=== PATIENT | female | born 1965 | race Caucasian/White ===

== ENCOUNTER 2016-05-16 17:53 | Emergency (ER) | payer BC ==
[~2016-05-16] VITALS: Ht 167.6 cm; Wt 79.4 kg
[~2016-05-16 17:53] MED LIST: CYCL5TAB11 PO; LAMO200T2 PO; SERT100T PO; TOPI100T11 PO; ZOLP10TA2 PO
[2016-05-16] MEDS ORDERED: MECLIZINE HCL 12.5 MG TABLET PO ONE (19:00)
[2016-05-16] MEDS ORDERED: MECLIZINE HCL 25 MG TABLET ONE (19:11)
[2016-05-16 20:30] VITALS: BP 138/80
== END 2016-05-16 20:32 | disposition home or self-care (01) ==
LOC: ER 17:55
DX: H81.10 Benign paroxysmal vertigo, unspecified ear (principal); K58.9 Irritable bowel syndrome, unspecified; F41.9 Anxiety disorder, unspecified; F32.9 Major depressive disorder, single episode, unspecified; F31.9 Bipolar disorder, unspecified; M79.7 Fibromyalgia; Z90.710 Acquired absence of both cervix and uterus
CPT/HCPCS: 70450; 93005; 99284; A4606; J8597; Z7610

== ENCOUNTER 2017-11-11 11:54 | Emergency (ER) | payer BC ==
[~2017-11-11] VITALS: Ht 162.6 cm; Wt 78.5 kg
[~2017-11-11 11:54] MED LIST changes: +TOPI100T PO; -TOPI100T11 PO
--- NOTE | 2017-11-11 12:00 | NUR ---
AAOX3, BIB RA 878 FROM WORK, STRESS/ANXIETY AFTER GETTING NEWS FROM HER PROVIDER THAT SHE MAY HAVE LUPUS OR RA. SKIN IS WARM AND DRY. RESP IS EVEN AND UNLABORED WITH NAD NOTED. AWAITING MD FOR EVAL.
[2017-11-11] MEDS ORDERED: LORAZEPAM INJ 2 MG/ML VIAL ONE (12:15)
[2017-11-11 12:18] LABS: BASOPHILS % (AUTO) 0.1 % (0.0-2.0); EOSINOPHILS % (AUTO) 0.1 % (0.0-6.0); HEMATOCRIT 42 % (33-45); HEMOGLOBIN 13.9 g/dL (11.5-14.8); LYMPHOCYTES # (AUTO) 0.6 /CMM (0.8-4.8); LYMPHOCYTES % (AUTO) 6.7 % (20.0-44.0); MEAN CORPUSCULAR HEMOGLOBIN 29 PG (26.0-33.0); MEAN CORPUSCULAR HGB CONC 33 g/dl (31.0-36.0); MEAN CORPUSCULAR VOLUME 89 fL (82-100); MONOCYTES # (AUTO) 0.2 /CMM (0.1-1.30); MONOCYTES % (AUTO) 1.8 % (2.0-12.0); NEUTROPHILS # (AUTO) 8.8 /CMM (1.8-8.9); NEUTROPHILS % (AUTO) 91.3 % (43.0-81.0); RDW COEFFICIENT OF VARIATION 12.5 (11.5-15.0); RED BLOOD CELL COUNT(AUTO) 4.74 MIL/uL (4.0-5.2); WHITE BLOOD COUNT (AUTO) 9.6 K/uL (4.3-11.0)
[2017-11-11 12:21] LABS: PLATELET COUNT (AUTO) 263 /CMM (150-450)
[2017-11-11 12:25] LABS: CALCIUM, SERUM 9.2 mg/dL (8.5-10.1); CREATININE 1.1 mg/dL (0.6-1.3); POTASSIUM 3.8 mmol/L (3.5-5.1)
[2017-11-11] MEDS ORDERED: IV NS 0.9% 1,000 ML BAG IV ONE (12:30)
[2017-11-11] MEDS ORDERED: LORAZEPAM INJ 2 MG/ML VIAL IV ONE (12:30)
--- NOTE | 2017-11-11 13:22 | NUR ---
IV removed. Catheter intact and site benign. Pressure and 4x4 applied to site. No bleeding noted.Patient discharged to home in stable condition. Written and verbal after care instructions given. Patient verbalizes understanding of instruction.
[2017-11-11 13:25] VITALS: BP 135/88
== END 2017-11-11 13:26 | disposition home or self-care (01) ==
LOC: ER 11:56
DX: F41.9 Anxiety disorder, unspecified (principal); F32.9 Major depressive disorder, single episode, unspecified; M79.7 Fibromyalgia; Z87.19 Personal history of other diseases of the digestive system; Z90.710 Acquired absence of both cervix and uterus; Z98.890 Other specified postprocedural states; Z79.899 Other long term (current) drug therapy
CPT/HCPCS: 36415; 80048; 85025; 96374; 99284; A4606; J2060; J7030; Z7610

== ENCOUNTER 2020-03-04 15:51 | Emergency (ER) | payer BC ==
[~2020-03-04] VITALS: Ht 162.6 cm; Wt 79.4 kg
--- NOTE | 2020-03-04 16:06 | NUR ---
DR LOPEZ IN TO SEE PATIENT.
--- NOTE | 2020-03-04 16:51 | NUR ---
Patient discharged to home in stable condition. Written and verbal after care instructions given. Patient verbalizes understanding of instruction.
[2020-03-04 16:52] VITALS: BP 132/94
== END 2020-03-04 16:54 | disposition home or self-care (01) ==
LOC: ER 15:53
DX: S06.0X0A Concussion without loss of consciousness, initial encounter (principal); S09.8XXA Other specified injuries of head, initial encounter; R51.9 Headache, unspecified; Z90.710 Acquired absence of both cervix and uterus; Z98.890 Other specified postprocedural states; W01.198A Fall on same level from slipping, tripping and stumbling with subsequent striking against other object, initial encounter; Y93.89 Activity, other specified; Y92.89 Other specified places as the place of occurrence of the external cause; Y99.8 Other external cause status
CPT/HCPCS: 70450-TC

== ENCOUNTER 2020-06-12 19:11 | Inpatient (IN) | payer BC ==
[~2020-06-12] VITALS: Ht 165.1 cm; Wt 83.9 kg
--- NOTE | 2020-06-12 19:32 | NUR ---
PT BIBSELF C/O OF LLQ PAIN AND B20 EPISODES OF BRIGGHT BLOODY DIARRHEAX1 DAY. PT AAOX4 BREATHING EVENLY AND UNLABORED. PT STATES SHE HAS 9/10 PAIN AND STATES "I DONT KNOW IF IT WAS SOMETHING I ATE" PT SKIN WARM, DRY, AND INTACT. PT HAS 20G IV INITIATED AND BLOOD DRAWN AND SENT TO LAB. PT ATTACHED TO MONITOR AND POX. PT GIVEN BLANKET AND CALL LIGHT WITHIN REACH.
[2020-06-12] MEDS ORDERED: ONDANSETRON HCL/PF 4 MG/2 ML VIAL ONE ×2 (19:52→21:23)
[2020-06-12] MEDS ORDERED: MORPHINE SULFATE INJ 4 MG/ML DISP.SYRIN ONE ×2 (19:52→21:24)
[2020-06-12] MEDS ORDERED: ONDANSETRON HCL/PF 4 MG/2 ML VIAL IVP ONE ×2 (20:00→21:30)
[2020-06-12] MEDS ORDERED: IV NS 0.9% 1,000 ML BAG IV ONE (20:00)
[2020-06-12] MEDS ORDERED: MORPHINE SULFATE INJ 2 MG/ML DISP.SYRIN IV ONE ×2 (20:00→21:30)
[2020-06-12 20:08] LABS: BASOPHILS % (AUTO) 0.3 % (0.0-2.0); EOSINOPHILS % (AUTO) 0.3 % (0.0-6.0); HEMATOCRIT 39 % (33-45); HEMOGLOBIN 13.5 g/dL (11.5-14.8); LYMPHOCYTES # (AUTO) 0.9 /CMM (0.8-4.8); LYMPHOCYTES % (AUTO) 8.3 % (20.0-44.0); MEAN CORPUSCULAR HGB CONC 34 g/dl (31.0-36.0); MEAN CORPUSCULAR VOLUME 89 fL (82-100); MONOCYTES # (AUTO) 0.6 /CMM (0.1-1.30); MONOCYTES % (AUTO) 5.6 % (2.0-12.0); NEUTROPHILS # (AUTO) 9.3 /CMM (1.8-8.9); NEUTROPHILS % (AUTO) 85.5 % (43.0-81.0); PLATELET COUNT (AUTO) 220 /CMM (150-450); RED BLOOD CELL COUNT(AUTO) 4.42 MIL/uL (4.0-5.2); WHITE BLOOD COUNT (AUTO) 10.9 K/uL (4.3-11.0)
--- NOTE | 2020-06-12 20:10 | NUR ---
TAKEN TO RADIOLOGY
[2020-06-12 20:17] LABS: CALCIUM, SERUM 8.3 mg/dL (8.5-10.1); CREATININE 1.1 mg/dL (0.6-1.3); POTASSIUM 3.2 mmol/L (3.5-5.1)
[2020-06-12 20:29] LABS: ALBUMIN 3.5 g/dL (3.4-5.0); BILIRUBIN,DIRECT 0.3 mg/dL (0.0-0.2); TOTAL PROTEIN, SERUM 7.2 g/dL (6.4-8.2)
[2020-06-12 20:46] LABS: BILIRUBIN,URINE Negative (NEGATIVE); COLOR,URINE YELLOW (YELLOW); LEUKOCYTE ESTERASE ,URINE Moderate (NEGATIVE); NITRITE, URINE Negative (NEGATIVE); PH,URINE 6.5 (5.0-8.0); PROTEIN,URINE Trace mg/dl (NEGATIVE); UGLUCOSE Negative (NEGATIVE); UROBILINOGEN,URINE 0.2 EU/dL (0.2)
[2020-06-12 20:48] LABS: BACTERIA,URINE 1+ /HPF (None Seen); SQUAMOUS EPITHELIAL CELL,UR Few /HPF (None Seen)
--- NOTE | 2020-06-12 21:18 | NUR ---
called lab for covid swab
--- NOTE | 2020-06-12 21:21 | NUR ---
called house sup for d5 1/2ns+ 20meq kcl
[2020-06-12] MEDS ORDERED: PIPERACILLIN /TAZOBACTAM 3.375 G VIAL IV ONE (21:23)
[2020-06-12] MEDS ORDERED: POTASSIUM CHLORIDE 20 MEQ TAB.PRT.SR PO ONE ×2 (21:24→21:30)
[2020-06-12] MEDS ORDERED: IV PREMIX D5 1/2NS + KCL 1,000 ML IV ONE ×2 (21:30→21:49)
[2020-06-12] MEDS ORDERED: PIPERACILLIN /TAZOBACTAM 3.375 G in IV D5W 50 ML IV ONE (21:30)
--- NOTE | 2020-06-12 22:52 | NUR ---
ATTEMPTED TO GIVE REPORT. RN BUSY
--- NOTE | 2020-06-12 23:04 | NUR ---
GAVE REPORT TO JAY MONTANA FOR ZEYNEP
[2020-06-12 23:10] VITALS: BP 109/60
--- NOTE | 2020-06-12 23:18 | NUR ---
MS PLEATER HAND NOTE Patient arrived to floor via guerney. VSS. No acute distress or SOB noted. Breath sounds even clear unlabored on room air. Abdominal tenderness noted in lower and upper left quadrant. BS hyperactive in same quadrants. Last BM was today, pt states there was a quarter-sized amount of blood in diarrhea. No nausea or vomiting noted at this time. Pulses 2+, symmetrical. Skin warm, pink, dry, intact. IV 20g left hand, patent and intact. Belongings list completed and documented. Patient oriented to room. Bed in low position, wheels locked, side rails up x2, call light within reach.
[2020-06-12] MEDS ORDERED: LEVOFLOXACIN 500 MG /D5W 100ML 100 ML IV ONE (23:45)
[2020-06-13] MEDS: MORPHINE SULFATE INJ 2 MG/ML DISP.SYRIN IV PRN ×4 (00:06→20:37)
[2020-06-13] MEDS: LEVOFLOXACIN 500 MG /D5W 100ML 500 MG in PREMIX 1 EA IV SCH ×2 (00:07→22:05)
[2020-06-13 00:50] VITALS: BP 109/60
[2020-06-13] MEDS: METRONIDAZOLE 500 MG TABLET PO SCH ×3 (04:41→20:36)
--- NOTE | 2020-06-13 06:27 | NUR ---
MS RN CLOSING NOTE Patient asleep in bed, a/o x4. No acute distress or SOB noted. Breath sounds even clear unlabored on room air. Abdominal tenderness noted in lower and upper left quadrant. BS hyperactive in same quadrants. Patient denies nausea, vomiting. IV 20g left hand, patent and intact. Bed in low position, wheels locked, side rails up x2, call light within reach.
[2020-06-13] MEDS: PANTOPRAZOLE 40 MG TABLET.DR PO SCH (06:32)
[2020-06-13] MEDS: ACETAMINOPHEN 325 MG TABLET PO PRN (06:36)
[2020-06-13 06:41] LABS: BASOPHILS % (AUTO) 0.1 % (0.0-2.0); EOSINOPHILS % (AUTO) 0.4 % (0.0-6.0); HEMATOCRIT 37 % (33-45); HEMOGLOBIN 12.6 g/dL (11.5-14.8); LYMPHOCYTES # (AUTO) 1.1 /CMM (0.8-4.8); LYMPHOCYTES % (AUTO) 10.8 % (20.0-44.0); MEAN CORPUSCULAR HGB CONC 34 g/dl (31.0-36.0); MEAN CORPUSCULAR VOLUME 90 fL (82-100); MONOCYTES # (AUTO) 0.5 /CMM (0.1-1.30); MONOCYTES % (AUTO) 5.4 % (2.0-12.0); NEUTROPHILS # (AUTO) 8.3 /CMM (1.8-8.9); NEUTROPHILS % (AUTO) 83.3 % (43.0-81.0); PLATELET COUNT (AUTO) 210 /CMM (150-450); RED BLOOD CELL COUNT(AUTO) 4.12 MIL/uL (4.0-5.2)
[2020-06-13 06:58] LABS: ALBUMIN 3.1 g/dL (3.4-5.0); BILIRUBIN,TOTAL 0.8 mg/dL (0.2-1.0); CALCIUM, SERUM 8.1 mg/dL (8.5-10.1); CREATININE 0.9 mg/dL (0.6-1.3); MAGNESIUM 2.5 mg/dL (1.8-2.4); PHOSPHORUS 2.3 mg/dL (2.5-4.9); POTASSIUM 3.8 mmol/L (3.5-5.1); TOTAL PROTEIN, SERUM 6.6 g/dL (6.4-8.2)
[2020-06-13 07:05] LABS: THYROID STIMULATING HORMONE 0.991 uIU/mL (0.358-3.74)
[2020-06-13] MEDS ORDERED: TRAM50TA2 PO (07:22)
[2020-06-13] MEDS ORDERED: CYCL10TA9 PO (07:22)
[2020-06-13] MEDS ORDERED: PRAZ2CAP2 PO (07:22)
[2020-06-13] MEDS ORDERED: VALA500T40 PO (07:22)
[2020-06-13] MEDS ORDERED: SERT-439 PO (07:22)
[2020-06-13] MEDS ORDERED: TOPI25TA49 PO (07:22)
[2020-06-13] MEDS ORDERED: LAMO150T6 PO (07:22)
--- NOTE | 2020-06-13 07:59 | NUR ---
MS RN OPENING NOTE Patient asleep in bed, a/o x4. No acute distress or SOB noted. Breath sounds even clear unlabored on room air. Patient denies nausea, vomiting. IV 20g left hand, patent and intact. Bed in low position, wheels locked, side rails up x2, call light within reach.
[2020-06-13 08:00] VITALS: BP 97/57
--- NOTE | 2020-06-13 08:50 | NUR ---
RN MS NOTES DR. BLAKE ROUNDED, DISCUSSED POC, WILL RECONCILE MEDS. CHANGED DIET TO CLEAR LIQUID
[2020-06-13] MEDS ORDERED: TRAMADOL HCL 50 MG TABLET PO PRN (09:30)
[2020-06-13] MEDS ORDERED: K PHOS NEUTRAL 250 MG TABLET PO ONE (11:00)
[2020-06-13] MEDS: ONDANSETRON HCL/PF 4 MG/2 ML VIAL IVP PRN ×2 (14:08→22:17)
[2020-06-13] MEDS ORDERED: CYCLOBENZAPRINE 10 MG TABLET PO PRN (14:30)
[2020-06-13 16:00] VITALS: BP 96/58
[2020-06-13] MEDS: PRAZOSIN HCL 1 MG CAPSULE PO SCH (17:00)
--- NOTE | 2020-06-13 18:16 | NUR ---
MS RN CLOSING NOTE Patient asleep in bed, a/o x4. No acute distress or SOB noted. Breath sounds even clear unlabored on room air. Patient denies nausea, vomiting. IV 20g left hand, patent and intact. Bed in low position, wheels locked, side rails up x2, call light within reach.
--- NOTE | 2020-06-13 19:30 | NUR ---
MS/RN OPENING NOTES RECEIVED PATIENT RESTING IN BED. PATIENT IS ALERT AND ORIENTED X 4. PATIENT BREATHING IS EVEN AND UNLABORED. NO SIGNS OF SOB OR RESPIRATORY DISTRESS NOTED. PATIENT HAS IV ACCESS INTACT FLUSHING WELL. SAFETY MEASURES ARE IN PLACE, BED IS LOCKED AND PLACED IN THE LOW POSITION, SIDE RAILS UP X 2, CALL LIGHT IS WITHIN REACH. WILL CONTINUE WITH PATIENT PLAN OF CARE.
[2020-06-13 20:26] VITALS: BP 102/60
--- NOTE | 2020-06-13 20:40 | NUR ---
MS/RN NOTES PATIENT STATED SHE WAS EXPERIENCING PAIN. PATIENT GIVEN MORPHINE 2 MG IVP. VITAL SIGNS WNL, WILL CONTINUE TO MONITOR.
[2020-06-13] MEDS ORDERED: CYCLOBENZAPRINE 10 MG TABLET PO SCH (22:00)
[2020-06-14] MEDS: METRONIDAZOLE 500 MG TABLET PO SCH ×3 (05:01→20:44)
--- NOTE | 2020-06-14 06:25 | NUR ---
MS/RN CLOSING NOTES PATIENT SLEEPING IN BED EASY TO AROUSE. PATIENT IS ALERT AND ORIENTED X 4. PATIENT BREATHING IS EVEN AND UNLABORED. NO SIGNS OF SOB OR RESPIRATORY DISTRESS NOTED. PATIENT HAS IV ACCESS INTACT FLUSHING WELL. ALL NEEDS HAVE BEEN MET DURING SHIFT. SAFETY MEASURES ARE IN PLACE, BED IS LOCKED AND PLACED IN THE LOW POSITION, SIDE RAILS UP X 2, CALL LIGHT IS WITHIN REACH. WILL ENDORSE CARE TO DAY SHIFT NURSE.
[2020-06-14 06:49] LABS: CREATININE 0.9 mg/dL (0.6-1.3); PHOSPHORUS 3.2 mg/dL (2.5-4.9); POTASSIUM 3.5 mmol/L (3.5-5.1)
[2020-06-14 08:00] VITALS: BP 132/73
[2020-06-14] MEDS: LamoTRIgine 100 MG TABLET PO SCH (08:52)
[2020-06-14] MEDS: VALACYCLOVIR HCL 500 MG TABLET PO SCH (08:52)
[2020-06-14] MEDS: PANTOPRAZOLE 40 MG TABLET.DR PO SCH (08:52)
[2020-06-14] MEDS: SERTRALINE HCL 50 MG TABLET PO SCH (08:53)
[2020-06-14] MEDS: TOPIRAMATE 25 MG TABLET PO SCH (08:53)
[2020-06-14] MEDS: PRAZOSIN HCL 1 MG CAPSULE PO SCH ×2 (08:55→16:11)
[2020-06-14 16:00] VITALS: BP 100/62
--- NOTE | 2020-06-14 18:07 | NUR ---
MS/RN CLOSING NOTES PATIENT RESTING IN BED. PATIENT IS ALERT AND ORIENTED X 4. PATIENT BREATHING IS EVEN AND UNLABORED. NO SIGNS OF SOB OR RESPIRATORY DISTRESS NOTED. PATIENT HAS IV ACCESS INTACT FLUSHING WELL. SAFETY MEASURES ARE IN PLACE, BED IS LOCKED AND PLACED IN THE LOW POSITION, SIDE RAILS UP X 2, CALL LIGHT IS WITHIN REACH.
--- NOTE | 2020-06-14 19:05 | NUR ---
RECEIVED PT ON BED AWAKE A/O X4 VERBALIZED NEEDS ON ROOM AIR SPO2 98% NO SIGN AND SYMPTOMS OF RESPIRATORY DISTRESS, NO PAIN COMPLAINT AT THIS TIME, IV LEFT HAND # 20 PATENT AND FLUSHED, BED ON LOWEST POSITION AND LOCKED SIDE RAILS UP X 2 CALL LIGHT WITHIN REACH WILL CONT TO MONITOR
[2020-06-14 20:00] VITALS: BP 116/75
[2020-06-14 20:39] VITALS: BP 116/75
[2020-06-14] MEDS: LEVOFLOXACIN 500 MG /D5W 100ML 500 MG in PREMIX 1 EA IV SCH (21:19)
[2020-06-15] MEDS: METRONIDAZOLE 500 MG TABLET PO SCH ×2 (04:55→12:04)
--- NOTE | 2020-06-15 06:42 | NUR ---
PT ON BED ASLEEP EASY TO WAKE UP ON ROOM AIR NO SIGN OF ANY RESPIRATORY DISTRESS, NO PAIN COMPLAINT, NO SIGNIFICANT CHANGES ON CONDITION NOTED ALL NEEDS ATTENDED, BED ON LOWEST POSITION AND LOCKED SIDE RAILS UP X 2 CALL LIGHT WITHIN REACH WILL ENDORSE TO AM SHIFT NURSE
--- NOTE | 2020-06-15 07:37 | NUR ---
MS RN OPENING NOTE: PT RECEIVED AWAKE, IN BED, RESTING COMFORTABLY. PT IS A/O X 4, VERBAL, MAORI SPEAKING AND ABLE TO MAKE NEEDS KNOWN WITH NO C/O PAIN AT THIS TIME. PT IS ON ROOM AIR, OBSERVED TO HAVE EVEN RISE AND FALL OF CHEST, WITH NO S/SX OF RESPIRATORY DISTRESS OR SOB AT THIS TIME. PT HAS AN IV ACCESS ON LEFT HAND G#20, PATENT, INTACT AND FLUSHING WELL WITH ON S/SX OF INFECTION, INFILTRATION OR IRRITATION. PT IS AMBULATORY WITH STEADY GAIT, IS ABLE TO AMBULATE TO THE BATHROOM INDEPENDENTLY. SAFETY MEASURES IN PLACE: BED IN LOWEST, LOCKED POSITION WITH BOTH UPPER SIDE RAILS UP X2. CALL LIGHT PLACED WITHIN REACH. WILL CONTINUE TO MONITOR.
[2020-06-15 08:00] VITALS: BP 129/72
[2020-06-15] MEDS: PANTOPRAZOLE 40 MG TABLET.DR PO SCH (08:15)
[2020-06-15] MEDS: LamoTRIgine 100 MG TABLET PO SCH (08:26)
[2020-06-15 08:27] VITALS: BP 129/72
[2020-06-15] MEDS: VALACYCLOVIR HCL 500 MG TABLET PO SCH (08:27)
[2020-06-15] MEDS: PRAZOSIN HCL 1 MG CAPSULE PO SCH (08:27)
[2020-06-15] MEDS: SERTRALINE HCL 50 MG TABLET PO SCH (08:27)
[2020-06-15] MEDS: TOPIRAMATE 25 MG TABLET PO SCH (08:27)
[2020-06-15] MEDS: ACETAMINOPHEN 325 MG TABLET PO PRN (09:15)
--- NOTE | 2020-06-15 09:20 | NUR ---
MS RN NOTE: PAIN PT C/O ACHING PAIN IN ABDOMEN RATED 2/10. TYLENOL 650MG PO Q6H PRN ADMINISTERED AT 09:15AM ORDERED PER PT'S REQUEST. WILL CONTINUE TO MONITOR.
--- NOTE | 2020-06-15 12:51 | NUR ---
MS DRUG WORKER NOTE: PT ABLE TO DISCHARGE TODAY. PT IS A/O X 4, VERBAL, ABLE TO MAKE NEEDS KNOWN WITH NO C/O PAIN AND NO S/SX OF ACUTE DISTRESS AT THIS TIME. PT'S VSS. PT IS MEDICALLY STABLE AT THIS TIME. IV ACCESS REMOVED. ID BAND/ARM BAND REMOVED. BELONGINGS LIST AND DISCHARGE PAPERS SIGNED FOR, COPIED AND GIVEN TO PT/PLACED IN CHART. COPIES OF IMAGING REPORTS GIVEN TO PT. DISCHARGE INSTRUCTIONS AND EDUCATION GIVEN TO PATIENT WITH SUCCESSFUL RETURN DEMONSTRATION AND VERBALIZATION OF UNDERSTANDING. ALL CARE, NEEDS, MEDICATION AND TREATMENT GIVEN ORDERED PER FACILITY PROTOCOL. PT LEFT UNIT AT 12:42PM, AMBULATORY WITH STEADY GAIT, ACCOMPANIED BY ME TO STEPHANIE. PICKED UP BY GINA CRAIG, MOTHER. CHARGE NURSE AND MD AWARE.
[2020-06-15] MEDS ORDERED: LEVOFLOXACIN (250MG) 250 MG TABLET PO SCH (22:00)
== END 2020-06-15 12:45 | disposition home or self-care (01) | DRG 872 ==
LOC: ER 19:16 → MED 22:49
PROVIDERS: ADMIT Internal Medicine; ATTEND Internal Medicine
DX: A41.9 Sepsis, unspecified organism (principal); A04.9 Bacterial intestinal infection, unspecified; N39.0 Urinary tract infection, site not specified; M48.56XA Collapsed vertebra, not elsewhere classified, lumbar region, initial encounter for fracture; E87.6 Hypokalemia; Z90.711 Acquired absence of uterus with remaining cervical stump; M79.7 Fibromyalgia; N80.9 Endometriosis, unspecified; Z87.891 Personal history of nicotine dependence; I10 Essential (primary) hypertension; F41.9 Anxiety disorder, unspecified; F32.9 Major depressive disorder, single episode, unspecified; K82.8 Other specified diseases of gallbladder; E27.8 Other specified disorders of adrenal gland; M41.86 Other forms of scoliosis, lumbar region; F10.10 Alcohol abuse, uncomplicated; Y90.9 Presence of alcohol in blood, level not specified; Z68.29 Body mass index [BMI] 29.0-29.9, adult; E66.9 Obesity, unspecified; F60.3 Borderline personality disorder; K58.0 Irritable bowel syndrome with diarrhea; Z20.822 Contact with and (suspected) exposure to COVID-19
CPT/HCPCS: 36415; 80048-TC; 80053-TC; 80061-TC; 80076-TC; 81001; 83540-TC; 83690-TC; 83735-TC; 84100-TC; 84443-TC; 85025-TC; 87081-TC; 87086-TC; A4216; C9803; G0378; J1956; J2270; J2405; J2543; J3490; J7050; J7060

== ENCOUNTER 2021-01-14 09:06 | Emergency (ER) | payer BC ==
[~2021-01-14] VITALS: Ht 165.1 cm; Wt 70.3 kg
[~2021-01-14 09:06] MED LIST changes: +CYCL10TA9 PO; -CYCL5TAB11 PO; +LAMO150T6 PO; -LAMO200T2 PO; +PRAZ2CAP2 PO; -SERT100T PO; +SERT100T12 PO; -TOPI100T PO; +TOPI25TA49 PO; +TRAM50TA2 PO; +VALA500T40 PO; -ZOLP10TA2 PO
--- NOTE | 2021-01-14 09:16 | NUR ---
TO ER BED 2 BIB RA 102, C/O BODY PAIN, CHEST AND BACK, P/S 08/24, DENIES TRAUMA, AAX3, BREATHING EVEN AND NON LABORED, CONNECTED TO MONITOR
--- NOTE | 2021-01-14 09:26 | NUR ---
LAB AT BEDSIDE
[2021-01-14] MEDS ORDERED: MORPHINE SULFATE INJ 2 MG/ML DISP.SYRIN IV ONE (09:30)
[2021-01-14] MEDS ORDERED: ONDANSETRON HCL/PF - ER 4 MG/2 ML VIAL IV ONE (09:30)
[2021-01-14] MEDS ORDERED: ONDANSETRON HCL/PF 4 MG/2 ML VIAL ONE (09:46)
[2021-01-14] MEDS ORDERED: MORPHINE SULFATE INJ 4 MG/ML DISP.SYRIN ONE (09:46)
[2021-01-14 09:50] LABS: BASOPHILS % (AUTO) 0.5 % (0.0-2.0); EOSINOPHILS % (AUTO) 2.6 % (0.0-6.0); HEMATOCRIT 40 % (33-45); HEMOGLOBIN 13.6 g/dL (11.5-14.8); LYMPHOCYTES % (AUTO) 38.5 % (20.0-44.0); MEAN CORPUSCULAR HGB CONC 34 g/dl (31.0-36.0); MEAN CORPUSCULAR VOLUME 89 fL (82-100); MONOCYTES # (AUTO) 0.3 K/uL (0.1-1.30); MONOCYTES % (AUTO) 6.1 % (2.0-12.0); NEUTROPHILS # (AUTO) 2.7 K/uL (1.8-8.9); NEUTROPHILS % (AUTO) 52.3 % (43.0-81.0); PLATELET COUNT (AUTO) 252 K/uL (150-450); RED BLOOD CELL COUNT(AUTO) 4.54 MIL/uL (4.0-5.2); WHITE BLOOD COUNT (AUTO) 5.1 K/uL (4.3-11.0)
[2021-01-14 10:05] LABS: ALANINE AMINOTRANSFERASE 22 U/L (12-78); ALBUMIN 3.9 g/dL (3.4-5.0); ALKALINE PHOSPHATASE 100 U/L (46-116); ASPARTATE AMINOTRANSFERASE 22 U/L (15-37); BILIRUBIN,DIRECT 0.2 mg/dL (0.0-0.2); BILIRUBIN,TOTAL 0.8 mg/dL (0.2-1.0); CALCIUM, SERUM 8.9 mg/dL (8.5-10.1); CARBON DIOXIDE 22 mmol/L (21-32); CHLORIDE 107 mmol/L (98-107); CREATININE 0.9 mg/dL (0.6-1.3); GLUCOSE 86 mg/dL (74-106); POTASSIUM 3.5 mmol/L (3.5-5.1); SODIUM SERUM 140 mmol/L (136-145); TOTAL PROTEIN, SERUM 7.2 g/dL (6.4-8.2); UREA NITROGEN, BLOOD 11 mg/dL (7-18)
--- NOTE | 2021-01-14 10:06 | NUR ---
URINE COLLECTED AND SENT TO THE LAB
[2021-01-14] MEDS ORDERED: IOHEXOL-350 100 ML VIAL IV ONE (10:58)
[2021-01-14] MEDS ORDERED: IV NS 0.9% 250 ML IV ONE (10:58)
--- NOTE | 2021-01-14 11:25 | NUR ---
COVID SAMPLE OBTAINED AND SENT TO LAB
--- NOTE | 2021-01-14 11:41 | NUR ---
MOVE SHEET SUBMITTED AND CALLED FOR TELE BED.
--- NOTE | 2021-01-14 12:12 | NUR ---
BED 321 - 2. REPORT TO BRUCE
[2021-01-14] MEDS ORDERED: ASPIRIN 81 MG TAB.CHEW PO ONE (12:30)
[2021-01-14] MEDS ORDERED: ASPIRIN 81 MG TAB.CHEW ONE (13:04)
[2021-01-14] MEDS ORDERED: MAGNESIUM HYDROXIDE 30 ML UDC PO PRN (13:30)
[2021-01-14] MEDS ORDERED: ACETAMINOPHEN 325 MG TABLET PO PRN (13:30)
[2021-01-14] MEDS ORDERED: ZOLPIDEM TARTRATE 5 MG TABLET PO PRN (13:30)
[2021-01-14] MEDS ORDERED: Z GUARD REMEDY 2 OZ OINT TP PRN (13:30)
[2021-01-14] MEDS ORDERED: MAG HYDROX/AL HYDROX/SIMETH 30 ML UDC PO PRN (13:30)
[2021-01-14] MEDS ORDERED: ONDANSETRON HCL/PF 4 MG/2 ML VIAL IVP PRN (13:30)
[2021-01-14] MEDS ORDERED: MORPHINE SULFATE INJ 2 MG/ML DISP.SYRIN IV PRN (13:30)
[2021-01-14] MEDS ORDERED: IV NS 0.9% 1,000 ML IV PRN (13:30)
--- NOTE | 2021-01-14 14:33 | NUR ---
REPORT GIVEN TO NURSE BARRERA
--- NOTE | 2021-01-14 14:50 | NUR ---
IV removed. Catheter intact and site benign. Pressure and 4x4 applied to site. No bleeding noted.Patient discharged to home in stable condition. Written and verbal after care instructions given. Patient verbalizes understanding of instruction. The patient is discharged with .
[2021-01-14 14:51] VITALS: BP 116/72
[2021-01-14] MEDS ORDERED: CYCLOBENZAPRINE 10 MG TABLET PO SCH (22:00)
[2021-01-15] MEDS ORDERED: PANTOPRAZOLE 40 MG TABLET.DR PO SCH (07:30)
[2021-01-15] MEDS ORDERED: TOPIRAMATE 25 MG TABLET PO SCH (09:00)
[2021-01-15] MEDS ORDERED: ASPIRIN EC 81 MG TABLET.DR PO SCH (09:00)
[2021-01-15] MEDS ORDERED: LamoTRIgine 100 MG TABLET PO SCH (09:00)
== END 2021-01-14 14:51 | disposition home or self-care (01) ==
LOC: ER 09:08 → TELE 12:22 → UNDOADMIN 12:22
DX: R07.9 Chest pain, unspecified (principal); M79.7 Fibromyalgia; I10 Essential (primary) hypertension; R94.31 Abnormal electrocardiogram [ECG] [EKG]; F31.9 Bipolar disorder, unspecified; F60.3 Borderline personality disorder; Z20.822 Contact with and (suspected) exposure to COVID-19; Z79.899 Other long term (current) drug therapy; Z53.20 Procedure and treatment not carried out because of patient's decision for unspecified reasons
CPT/HCPCS: 36415; 71045; 71275; 80048; 80076; 83735; 84484 ×2; 84703; 85025; 85378; 87081; 87426; 93005 ×2; 96374; 96375; 99285; J2270; J2405 ×2; J7050; Q9967

== ENCOUNTER 2021-03-31 20:09 | Emergency (ER) | payer BC ==
[~2021-03-31] VITALS: Ht 165.1 cm; Wt 65.8 kg
[~2021-03-31 20:09] MED LIST changes: -PRAZ2CAP2 PO; -SERT100T12 PO
[2021-03-31] MEDS ORDERED: LORAZEPAM 1 MG TABLET ONE (21:44)
--- NOTE | 2021-03-31 21:50 | NUR ---
PT BIBSELF C/O TROUBLE Bx, AND HEAVY CHEST AT NIGHT WHILE SLEEPING. PT TESTED COVID POSITIVE ON 03/22. PATIENT IS A/O X 4, RR EVEN AND UNLABORED, NO SOB NOTED. PATIENT CONNECTED TO CARDIAC AND POX MONITOR.
--- NOTE | 2021-03-31 21:56 | NUR ---
RAD AT BEDSIDE
[2021-03-31] MEDS ORDERED: LORAZEPAM 1 MG TABLET PO ONE (22:00)
[2021-03-31 23:33] VITALS: BP 138/79
--- NOTE | 2021-03-31 23:33 | NUR ---
Patient discharged to home in stable condition. Written and verbal after care instructions given. Patient verbalizes understanding of instruction.
== END 2021-03-31 23:34 | disposition home or self-care (01) ==
LOC: ER 20:13
DX: R06.02 Shortness of breath (principal); I10 Essential (primary) hypertension; F32.9 Major depressive disorder, single episode, unspecified; M79.7 Fibromyalgia; Z98.890 Other specified postprocedural states; Z79.899 Other long term (current) drug therapy
CPT/HCPCS: 71045-TC

== ENCOUNTER 2021-10-02 05:34 | Inpatient (IN) | payer BC ==
[~2021-10-02] VITALS: Ht 165.1 cm; Wt 68.0 kg
--- NOTE | 2021-10-02 06:02 | NUR ---
BIBS C/O RIGHT FLANK PAIN RADIATING TO RIGHT ABDOMEN SINCE 4AM. +N/V. PATIENT ALERT AND ORIENTED X3. AMBULATORY WITH NON LABORED BREATHING IN BED 09 ON MONITOR AND POX AWAITING MD TELELZ.
--- NOTE | 2021-10-02 06:03 | NUR ---
PT PROVIDED WITH WARM BLANKET FOR COMFORT.
[2021-10-02] MEDS ORDERED: ONDANSETRON HCL/PF 4 MG/2 ML VIAL ONE (06:11)
[2021-10-02] MEDS ORDERED: MORPHINE SULFATE INJ 4 MG/ML DISP.SYRIN ONE (06:11)
--- NOTE | 2021-10-02 06:19 | NUR ---
BLOOD COLLECTED AND SENT TO LAB
--- NOTE | 2021-10-02 06:19 | NUR ---
URINE COLLECTED AND SENT TO LAB
[2021-10-02] MEDS ORDERED: MORPHINE SULFATE INJ 2 MG/ML DISP.SYRIN IV ONE (06:30)
[2021-10-02] MEDS ORDERED: ONDANSETRON HCL/PF 4 MG/2 ML VIAL IVP ONE (06:30)
[2021-10-02] MEDS ORDERED: IV NS 0.9% 1,000 ML BAG IV ONE (06:30)
[2021-10-02] MEDS ORDERED: HYDROMORPHONE 1 MG/1 ML DISP.SYRIN ONE (06:42)
[2021-10-02 06:56] LABS: BILIRUBIN,URINE NEGATIVE (NEGATIVE); COLOR,URINE YELLOW (YELLOW); LEUKOCYTE ESTERASE ,URINE MODERATE (NEGATIVE); NITRITE, URINE NEGATIVE (NEGATIVE); PH,URINE 7.5 (5.0-8.0); PROTEIN,URINE NEGATIVE (NEGATIVE); UGLUCOSE NEGATIVE (NEGATIVE)
[2021-10-02] MEDS ORDERED: HYDROMORPHONE 1 MG/1 ML DISP.SYRIN IV ONE (07:00)
[2021-10-02 07:03] LABS: ALANINE AMINOTRANSFERASE 85 U/L (12-78); ALBUMIN 3.9 g/dL (3.4-5.0); ALKALINE PHOSPHATASE 138 U/L (46-116); ASPARTATE AMINOTRANSFERASE 195 U/L (15-37); BILIRUBIN,DIRECT 0.4 mg/dL (0.0-0.2); BILIRUBIN,TOTAL 1.1 mg/dL (0.2-1.0); CALCIUM, SERUM 9.2 mg/dL (8.5-10.1); CARBON DIOXIDE 29 mmol/L (21-32); CHLORIDE 103 mmol/L (98-107); CREATININE 0.9 mg/dL (0.6-1.3); GLUCOSE 113 mg/dL (74-106); POTASSIUM 3.2 mmol/L (3.5-5.1); SODIUM SERUM 140 mmol/L (136-145); TOTAL PROTEIN, SERUM 7.1 g/dL (6.4-8.2); UREA NITROGEN, BLOOD 19 mg/dL (7-18)
[2021-10-02 07:04] LABS: BASOPHILS % (AUTO) 0.4 % (0.0-2.0); EOSINOPHILS % (AUTO) 1.9 % (0.0-6.0); HEMATOCRIT 42 % (33-45); HEMOGLOBIN 14.3 g/dL (11.5-14.8); LYMPHOCYTES # (AUTO) 1.8 K/uL (0.8-4.8); LYMPHOCYTES % (AUTO) 31.9 % (20.0-44.0); MEAN CORPUSCULAR HGB CONC 34 g/dl (31.0-36.0); MEAN CORPUSCULAR VOLUME 87 fL (82-100); MONOCYTES # (AUTO) 0.3 K/uL (0.1-1.30); MONOCYTES % (AUTO) 5.5 % (2.0-12.0); NEUTROPHILS # (AUTO) 3.4 K/uL (1.8-8.9); NEUTROPHILS % (AUTO) 60.3 % (43.0-81.0); PLATELET COUNT (AUTO) 245 K/uL (150-450); RED BLOOD CELL COUNT(AUTO) 4.78 MIL/uL (4.0-5.2); WHITE BLOOD COUNT (AUTO) 5.6 K/uL (4.3-11.0)
[2021-10-02 07:08] LABS: BACTERIA,URINE Rare /HPF (None Seen); RBC,URINE 0-2 /HPF (0-2); SQUAMOUS EPITHELIAL CELL,UR Few /HPF (None Seen)
--- NOTE | 2021-10-02 07:20 | NUR ---
RECEIVED PT FROM SOFIA THOMPSON PT AWAKE AND ALERT RESPIRATION SPONT AND EASY
--- NOTE | 2021-10-02 07:22 | NUR ---
REPORT GIVEN TO JAY RODRIGUEZ FOR ZEYNEP
[2021-10-02 07:44] LABS: LIPASE > 1500 U/L (73-393)
--- NOTE | 2021-10-02 08:20 | NUR ---
CXRAY RDONE AT BED
[2021-10-02] MEDS ORDERED: Z GUARD REMEDY 4 OZ OINT TP PRN (09:00)
[2021-10-02] MEDS ORDERED: ONDANSETRON HCL/PF 4 MG/2 ML VIAL IVP PRN (09:00)
[2021-10-02] MEDS ORDERED: ACETAMINOPHEN 325 MG TABLET PO PRN (09:00)
--- NOTE | 2021-10-02 09:00 | NUR ---
COVID SWAB COLLECTED AND SENT TO LAB
[2021-10-02] MEDS ORDERED: PANT40TA2 PO (09:23)
[2021-10-02] MEDS ORDERED: TOPIRAMATE 25 MG TABLET ONE (10:00)
[2021-10-02] MEDS: TOPIRAMATE 25 MG TABLET PO SCH (10:01)
--- NOTE | 2021-10-02 10:15 | NUR ---
DR. HAIRSTON ( [facility] ) HERE AT BED SIDE SPOOK WITH PT
--- NOTE | 2021-10-02 10:20 | NUR ---
DR. IBARRA SPOOK WITH PT AND FAMILY ABOUT PLAN OF CARE
--- NOTE | 2021-10-02 10:35 | NUR ---
TO MRI VIA WC STABLE VS PT SIGHN AND ANSWER QUSTIONER OF MRI
--- NOTE | 2021-10-02 10:40 | NUR ---
ROOM 321-1
--- NOTE | 2021-10-02 10:51 | NUR ---
HAND OFF TO ANI RN VS STABLE
--- NOTE | 2021-10-02 11:04 | NUR ---
PT BACK FROM MRI TO ROOM 32-1 VIA DASHA SAN
--- NOTE | 2021-10-02 11:30 | NUR ---
RN NOTES RECEIVED PATIENT FROM ER VIA LAURA AT 11 30 . PATIENT IS ALERT AND ORIENTED TIMES 4. NO PAIN NOTED. NO SOB NOTED. NO DISTRESS NOTED. ALL NEEDS ATTENDED. IV SITE ON THE RAC g 18 INTACT. ON ROOM AIR . NO SOB NOTED. ALL SAFETY MEASURES IN PLACE. BED LOCKED IN THE LOWEST POSITION. CALL LIGHT AND TABLE IN REACH. SIDE RAILS UP TIMES 2. WILL CONTINUE TO MONITOR.
[2021-10-02] MEDS: MORPHINE SULFATE INJ 2 MG/ML DISP.SYRIN IV PRN ×2 (11:46→23:29)
[2021-10-02] MEDS: PIPERACILLIN /TAZOBACTAM 4.5 G in IV D5W 50 ML IV SCH ×3 (13:00→23:31)
[2021-10-02] MEDS: VALACYCLOVIR HCL 500 MG TABLET PO SCH (14:40)
[2021-10-02 16:00] VITALS: BP 105/65
[2021-10-02] MEDS: TRAMADOL HCL 50 MG TABLET PO PRN (18:42)
--- NOTE | 2021-10-02 19:15 | NUR ---
RN NOTES: RECEIVED LYING ON BED,A/OX4, ON ROOM AIR SPO2-97%,NON LABORED BREATHING, NO SOB NOTED, CONTINENT BOTH BOWEL AND BLADDER,AMBULATORY WITH BRP,IN CANNULA LH#22, IVF ON NS AT 150 ML/HR VIA IV PUMP, SHE JUST RECEIVED HER PAIN MEDICATION, , SALINE LOCK. FOR LABS IN THE MORNING. -ORIENTED TO UNIT AND STAFF.ON CLOSE WATCH.KEPT CALL LIGHT WITHIN EASY REACH, FALL AND SAFETY PRECAUTION OBSERVED. -SHE COMPLAINED OF FEELING ITCHY WITH HER GOWN, CHANGE AND GIVEN A NEW ONE. -BELONGINGS CHECK AND DOCUMENTED BY INCOMING TELEVISION REPAIRER
--- NOTE | 2021-10-02 19:30 | NUR ---
RN CLOSING NOTES PATIENT IS AWAKE. AT HER SIDE.PATIENT IS ALERT AND ORIENTED TIMES 4. NO PAIN NOTED. NO SOB NOTED. NO DISTRESS NOTED. ALL NEEDS ATTENDED. ALL DUE MEDS GIVEN ORDERED.IV SITE ON THE LEFT HAND G #22 INTACT AND PATENT. ON ROOM AIR . NO SOB NOTED. ALL SAFETY MEASURES IN PLACE. BED LOCKED IN THE LOWEST POSITION. CALL LIGHT AND TABLE IN REACH. SIDE RAILS UP TIMES 2. WILL ENDORSE FOR ZEYNEP.
[2021-10-02 20:00] VITALS: BP 105/60
--- NOTE | 2021-10-02 20:37 | NUR ---
RN NOTES: -ASSISTED BY RN TO THE BATHROOM AND GIVEN FRESH TOWEL WITH COLD WATER TO FRESHEN UP, SHE SAID SHE MIGHT JUST NEED TO CHANGE HER DRESS THAT'S WHY SHE FEEL ITCHY, RN INSTRUCT TO NOTIFY IF SHE HAS RED RASHES IS COMING OUT AND SHE IS NOT RELIEVED WITH ITCHING.
[2021-10-02] MEDS: CYCLOBENZAPRINE 10 MG TABLET PO SCH (22:28)
--- NOTE | 2021-10-02 23:29 | NUR ---
RN NOTES: REQUEST FOR HER PAIN MEDICATION, PAIN 10/10, SHE SAID SHE WANTS THE INJECTION., NON PHARMACOLOGIC INTERVENTION RENDERED, DIM LIT AND SOFT MUSIC.
[2021-10-02] MEDS: IV NS 0.9% 1,000 ML IV PRN (23:37)
--- NOTE | 2021-10-02 23:37 | NUR ---
RN NOTES: IVF CONSUMED, STARTED NS AT 150 ML/HR
[2021-10-03] MEDS: PIPERACILLIN /TAZOBACTAM 4.5 G in IV D5W 50 ML IV SCH ×4 (06:07→23:42)
[2021-10-03 06:28] LABS: BASOPHILS % (AUTO) 0.6 % (0.0-2.0); EOSINOPHILS % (AUTO) 2.4 % (0.0-6.0); HEMATOCRIT 36 % (33-45); HEMOGLOBIN 12.1 g/dL (11.5-14.8); LYMPHOCYTES # (AUTO) 1.3 K/uL (0.8-4.8); LYMPHOCYTES % (AUTO) 30.9 % (20.0-44.0); MEAN CORPUSCULAR HGB CONC 34 g/dl (31.0-36.0); MEAN CORPUSCULAR VOLUME 88 fL (82-100); MONOCYTES # (AUTO) 0.2 K/uL (0.1-1.30); MONOCYTES % (AUTO) 5.4 % (2.0-12.0); NEUTROPHILS # (AUTO) 2.6 K/uL (1.8-8.9); NEUTROPHILS % (AUTO) 60.7 % (43.0-81.0); PLATELET COUNT (AUTO) 192 K/uL (150-450); RED BLOOD CELL COUNT(AUTO) 4.06 MIL/uL (4.0-5.2); WHITE BLOOD COUNT (AUTO) 4.2 K/uL (4.3-11.0)
[2021-10-03 07:03] LABS: CALCIUM, SERUM 7.7 mg/dL (8.5-10.1); CREATININE 0.8 mg/dL (0.6-1.3); MAGNESIUM 2.3 mg/dL (1.8-2.4); PHOSPHORUS 4.1 mg/dL (2.5-4.9); POTASSIUM 3.7 mmol/L (3.5-5.1); TOTAL PROTEIN, SERUM 5.7 g/dL (6.4-8.2)
[2021-10-03 08:00] VITALS: BP 97/63
--- NOTE | 2021-10-03 08:00 | NUR ---
RN OPENING NOTE PATIENT RECEIVED IN BED, AO X 4, ABLE TO RESPONDS ALL STIMULI. IN NO ACUTE DISTRESS NOTED. RESPIRATORY EVEN AND UNLABORED ON ROOM AIR. SKIN IS WARM TO TOUCH, KEEP CLEAN/DRY. KEPT ELEVATED HOB FOR ENSURE AIRWAY AND ASPIRATION PRECAUTION, ALSO LOWEST POSITION OF THE BED, S/R UP X 3, BED ALARM IS ON AT ALL THE TIMES. ALL SAFETY PRECAUTION APPLIED. CALL LIGHT WITHIN REACH, WILL CONTINUE TO MONITOR.
--- NOTE | 2021-10-03 08:04 | NUR ---
RN NOTES: ABLE TO SLEEP AND REST, ASSISTED TO THE BATHROOM, SHE STILL HAVE ON AND OFF PAIN UPON SHE WAKE UP, NOTIFIED INCOMING NURSE TO GIVE PAIN MEDICATION, MRSA SWAB COLLECTED, READY FRO PROCESSING LEAD, ENDORSED FOR CONTINUITY OF CARE.
[2021-10-03] MEDS: TRAMADOL HCL 50 MG TABLET PO PRN ×2 (08:13→23:36)
[2021-10-03] MEDS: VALACYCLOVIR HCL 500 MG TABLET PO SCH (08:14)
[2021-10-03] MEDS: TOPIRAMATE 25 MG TABLET PO SCH (08:14)
[2021-10-03] MEDS ORDERED: LamoTRIgine 100 MG TABLET PO SCH (09:00)
[2021-10-03] MEDS: MORPHINE SULFATE INJ 2 MG/ML DISP.SYRIN IV PRN ×2 (11:06→21:11)
[2021-10-03] MEDS: IV NS 0.9% 1,000 ML IV PRN (12:04)
[2021-10-03] MEDS ORDERED: INDOMETHACIN 50 MG SUPP.RECT ONE ×2 (12:13→16:45)
[2021-10-03] MEDS ORDERED: ANESTHESIA TRAY IN PYXIS 1 EA TRAY MC ONE (12:13)
[2021-10-03] MEDS ORDERED: IOHEXOL 240MG/ML 50 ML IV ONE (12:14)
--- NOTE | 2021-10-03 14:22 | NUR ---
CASS was notified by charge nurse that the pt.'s is at bedside and the pt. would like to know if certain procedure will be covered by her insurance. CASS called catalyst plant supervisor Raaf and left her a voicemail. CASS also called [facility] Financial services ext#[phone]. [facility] stated they cannot call this patient's insurance regarding the matter as they are not authorized representatives. However, they suggest patient and call the number listed in the back of her insurance card and they could provide that information. CASS discussed with patient's nurse.
--- NOTE | 2021-10-03 15:45 | NUR ---
PATIENT RECEIVED ERCP ORDER, DR. ROWLAND EXPLAINED ABOUT PROCEDURE. THE PATIENT TOTALLY UNDERSTANDING AND SIGNED ON CONSENT.
[2021-10-03 16:00] VITALS: BP 104/64
--- NOTE | 2021-10-03 19:00 | NUR ---
RN CLOSING NOTE PATIENT IN BED RESTING. IN NO ACUTE DISTRESS NOTED. RESPIRATORY EVEN AND UNLABORED ON ROOM AIR. SKIN IS WARM TO TOUCH, KEEP CLEAN/DRY. KEPT ELEVATED HOB FOR ENSURE AIRWAY AND ASPIRATION PRECAUTION, BED IN LOWEST POSITION AND LOCK. BED ALARM IS ON AT ALL THE TIMES. PATIENT LEFT TO THE ERCP PROCEDURE IN STABLE CONDITION. ALL SAFETY MEASURED IN PLACED. CALL LIGHT WITHIN REACH, WILL ENDORSED TO NEXT SHIFT.
[2021-10-03] MEDS ORDERED: MIDAZOLAM HCL 2 MG/2ML VIAL ONE (19:12)
--- NOTE | 2021-10-03 19:30 | NUR ---
MS/RN OPENING NOTE RECEIVED PATIENT OUT OF ROOM FOR ERCP PROCEDURE WITH DR. HARTMAN. WILL CHECK IN WITH PATIENT WHEN SHE RETURNS FROM PROCEDURE.
[2021-10-03] MEDS ORDERED: ONDANSETRON HCL/PF 4 MG/2 ML VIAL ONE ×2 (20:22→20:40)
[2021-10-03] MEDS ORDERED: METOCLOPRAMIDE HCL 10 MG/2 ML VIAL ONE (20:31)
[2021-10-03] MEDS ORDERED: IV LR 1000 ML 1,000 ML IV PRN (21:00)
--- NOTE | 2021-10-03 21:00 | NUR ---
MS/RN NOTE PATIENT RETURNED FROM ERCP PROCEDURE. OPERATIONS PROCESSOR PAT AT BEDSIDE TO GIVE REPORT. PATIENT IS ALERT AND ORIENTED X 4. ABLE TO MAKE NEEDS KNOWN. FAMILY AT BEDSIDE. CONTINUES ON ROOM AIR WITH NO S/SX OF RESPIRATORY DISTRESS NOTED. IV ACCESS TO LEFT FOREARM #22G INTACT AND PATENT. CONTINUES ON LR @ 150ML/HR X 1L, THEN BACK TO IVF NS @ 150ML/HR PER DR. HARTMAN. C/O PAIN TO ABDOMEN - WILL ADMINISTERED PRN PAIN MEDS PER MD ORDER. PATIENT IS CLEAR LIQUIDS PER DR. HARTMAN. ICE CHIPS AND JELLO PROVIDED. CALL LIGHT WITHIN REACH. ASPIRATION, FALL AND SAFETY PRECAUTIONS MAINTAINED. ALL NEEDS ATTENDED TO AT THIS TIME.
[2021-10-03] MEDS: CYCLOBENZAPRINE 10 MG TABLET PO SCH (21:12)
--- NOTE | 2021-10-03 22:00 | NUR ---
MS/RN NOTE VS MONITORED Q15MIN POST ERCP. LAST SET OF VITAL SIGNS: BP 126/78 HR 75 RR 18 T 98.2 O2 SAT 98% ON ROOM AIR. PATIENT CURRENTLY RESTING IN BED. PATIENT ATE JELLO AND JUICE WITH NO S/SX OF NAUSEA OR VOMITING. ALL NEEDS ATTENDED TO AT THIS TIME.
--- NOTE | 2021-10-03 22:30 | NUR ---
MS/RN NOTE CONTACTED DR. ROWLAND REGARDING ? OF SURGERY IN AM FOR PATIENT. PER DR. ROWLAND PATIENT WILL HAVE LAPROSCOPIC CHOLECYSTECTOMY ON THURSDAY 10/05. ORDERED CONSENT TO BE OBTAINED FOR PROCEDURE AND FOR PATIENT TO BE NPO POST MIDNIGHT FRIDAY NIGHT. STATES PATIENT CAN BE ON LOW FAT DIET TOLERATED UNTIL THEN. ORDER INPUTTED AND CARRIED OUT.
--- NOTE | 2021-10-03 23:40 | NUR ---
MS/RN NOTE PATIENT WITH C/O PAIN 6/10 TO ABDOMEN. ADMINISTERED PRN TRAMADOL PER MD ORDERS.
[2021-10-04] VITALS: BP 128/76
--- NOTE | 2021-10-04 00:15 | NUR ---
MS/RN NOTE PATIENT COMPLETED IVF LR X 1L. RESTARTED IVF NS 0.9% @ 75ML/HR. PATIENT CURRENTLY RESTING IN BED. ALL NEEDS ATTENDED TO AT THIS TIME.
--- NOTE | 2021-10-04 00:30 | NUR ---
MS/RN NOTE OBTAINED CONSENTS FOR PLANNED LAP SANDOVAL PROCEDURE ON 10/05, ANESTHESIA AND BLOOD TRANSFUSION. PLACED IN PATIENTS CHART.
[2021-10-04] MEDS: IV NS 0.9% 1,000 ML IV PRN ×2 (02:17→09:28)
[2021-10-04] MEDS: PIPERACILLIN /TAZOBACTAM 4.5 G in IV D5W 50 ML IV SCH ×3 (05:14→18:00)
--- NOTE | 2021-10-04 06:30 | NUR ---
MS/RN CLOSING NOTE PATIENT CURRENTLY RESTING IN BED. AWAKE, ALERT AND ORIENTED X 4. ABLE TO MAKE NEEDS KNOWN. DENIES PAIN AT THIS TIME. CONTINUES ON ROOM AIR WITH NO S/SX OF RESPIRATORY DISTRESS NOTED. IV ACCESS TO LEFT FOREARM #22G INTACT AND PATENT. CONTINUES ON IVF NS 0.9% @ 150ML/HR. CONTINUES ON IV ABX. PATIENT TOLERATING LOW FAT DIET WELL WITH NO NAUSEA OR VOMITING NOTED AT THIS TIME. PATIENT IS AMBULATORY WITH STEADY GAIT. CALL LIGHT WITHIN REACH. ASPIRATION, FALL AND SAFETY PRECAUTIONS MAINTAINED. ALL NEEDS ATTENDED TO AT THIS TIME. WILL ENDORSE PLAN OF CARE TO ONCOMING SHIFT RN.
--- NOTE | 2021-10-04 07:50 | NUR ---
RN OPENING NOTE PATIENT RECEIVED IN BED RESTING. A/O X4. NO VISUAL S/S OF DISTRESS OR SOB. NO C/O PAIN. PATIENT REMAINS ON FULL LIQUID DIET UNTIL SCHEDULED PROCEDURE ON 10/05/21. IV ACCESS SITE TO LEFT WRIST INTACT AND PATENT WITH NS RUNNING @ 150ML/HR. PATIENT AMBULATORY WITH A STEADY GAIT. REMAINS ON IV ABX. SAFETY MEASURES IN PLACE WITH BED IN LOWEST POSITION AND LOCKED. CALL LIGHT WITHIN REACH. WILL CONTINUE TO MONITOR.
[2021-10-04 08:28] LABS: BASOPHILS % (AUTO) 0.5 % (0.0-2.0); EOSINOPHILS % (AUTO) 2.5 % (0.0-6.0); HEMATOCRIT 35 % (33-45); HEMOGLOBIN 11.6 g/dL (11.5-14.8); LYMPHOCYTES # (AUTO) 1.3 K/uL (0.8-4.8); LYMPHOCYTES % (AUTO) 30.2 % (20.0-44.0); MEAN CORPUSCULAR HGB CONC 34 g/dl (31.0-36.0); MEAN CORPUSCULAR VOLUME 88 fL (82-100); MONOCYTES # (AUTO) 0.3 K/uL (0.1-1.30); MONOCYTES % (AUTO) 7.4 % (2.0-12.0); NEUTROPHILS # (AUTO) 2.7 K/uL (1.8-8.9); NEUTROPHILS % (AUTO) 59.4 % (43.0-81.0); PLATELET COUNT (AUTO) 182 K/uL (150-450); RED BLOOD CELL COUNT(AUTO) 3.91 MIL/uL (4.0-5.2); WHITE BLOOD COUNT (AUTO) 4.5 K/uL (4.3-11.0)
[2021-10-04 08:42] LABS: ALBUMIN 2.7 g/dL (3.4-5.0); BILIRUBIN,TOTAL 1.3 mg/dL (0.2-1.0); CALCIUM, SERUM 7.5 mg/dL (8.5-10.1); CREATININE 0.8 mg/dL (0.6-1.3); POTASSIUM 3.4 mmol/L (3.5-5.1); TOTAL PROTEIN, SERUM 5.5 g/dL (6.4-8.2)
[2021-10-04] MEDS: TOPIRAMATE 25 MG TABLET PO SCH (09:30)
[2021-10-04] MEDS: VALACYCLOVIR HCL 500 MG TABLET PO SCH (09:30)
[2021-10-04] MEDS: LamoTRIgine 100 MG TABLET PO SCH (09:30)
[2021-10-04] MEDS ORDERED: POTASSIUM CHLORIDE 20 MEQ TAB.PRT.SR PO SCH (10:00)
[2021-10-04] MEDS: MORPHINE SULFATE INJ 2 MG/ML DISP.SYRIN IV PRN ×2 (11:39→21:59)
--- NOTE | 2021-10-04 12:02 | NUR ---
RN NOTE PATIENT C/O ITCHINESS AT IV ACCESS SITE TO LEFT WRIST. AFFECTED AREA SLIGHTLY RED. IV ABX IMMEDIATELY STOPPED AND DISCONNECTED. NO SIGN OF INFILTRATION. CHARGE NURSE AWARE. WILL CONTINUE TO MONITOR.
[2021-10-04] MEDS ORDERED: PROPOFOL 100 ML ONE ×2 (16:02→18:46)
[2021-10-04] MEDS ORDERED: FENTANYL PF 100MCG/2ML AMPUL ONE ×2 (16:02→19:46)
[2021-10-04] MEDS ORDERED: ROCURONIUM BROMIDE 50 MG/5 ML ONE (16:02)
[2021-10-04] MEDS ORDERED: SCOPOLAMINE PATCH 1 MG/72HR TD ONE (16:05)
[2021-10-04] MEDS ORDERED: LIDOCAINE 1% INJ 50 ML MDV IJ ONE (17:25)
[2021-10-04] MEDS ORDERED: BUPIVACAINE MPF 0.5% W/EPI INJ 30 ML VIAL ONE (17:25)
--- NOTE | 2021-10-04 18:40 | NUR ---
RN CLOSING NOTE PATIENT A/OX4. NO S/SX OF DISTRESS ON SHIFT. C/O PAIN TO RIGHT UPPER ABDOMINAL AREA TWICE ON SHIFT. RECEIVED PRN TYLENOL @ 0930 & PRN MORPHINE @ 1140, TYLENOL WAS NOT EFFECTIVE. PATIENT CLEAR LIQUID STATUS CHANGED TO NPO SHE WAS TAKEN TO SURGERY EARLIER THAN ORIGINALLY PLANNED. LEFT UNIT @ 1700 BY BED TO SURGERY DEPARTMENT. 1800 DOSE OF ZOSYN NOT GIVEN PATIENT WAS NOT ON UNIT. ADDITIONAL IV ACCESS INSERTED TO RIGHT FOREARM ON SHIFT, ORIGINAL IV ACCESS SITE BECAME ITCHY AND RED TO PATIENT, HOWEVER NOT INFILTRATED, THEREFORE LEFT INTACT. WILL ENDORSE PATIENT STATUS TO ONCOMING NURSE.
[2021-10-04] MEDS ORDERED: IV LR 1000 ML 1,000 ML IV PRN (20:00)
[2021-10-04] MEDS ORDERED: MIDAZOLAM HCL 2 MG/2ML VIAL ONE (20:07)
--- NOTE | 2021-10-04 21:30 | NUR ---
MS/RN OPENING NOTE PATIENT ARRIVED BACK TO UNIT FROM SURGERY IN STABLE CONDITION. REPORT FROM SURGERY GIVEN FROM TANK CAR INSPECTOR PAT. PATIENT IS S/P LAP SANDOVAL. ALERT AND ORIENTED X 4. ENDORSES ABDOMINAL PAIN 10/24 - WILL ADMINISTER PRN PAIN MEDICATION PER MD ORDER. IV ACCESS TO RIGHT AC #20G INTACT AND PATENT. CONTINUES ON IVF LR. CONTINUES ON IV ANCEF X 24HRS PER DR. ROWLAND. PATIENT HAS 3 DRESSING SITES ON ABDOMEN ALL C/D/I. FAMILY AT BEDSIDE. CALL LIGHT WITHIN REACH. ASPIRATION, FALL AND SAFETY PRECAUTIONS MAINTAINED. ALL NEEDS ATTENDED TO AT THIS TIME.
[2021-10-04 21:49] VITALS: BP 124/84
[2021-10-04] MEDS: CYCLOBENZAPRINE 10 MG TABLET PO SCH (21:55)
--- NOTE | 2021-10-04 22:00 | NUR ---
MS/RN NOTE PATIENT NOW ON CLEAR LIQUID DIET PER MD ORDERS. PATIENT TOLERATING WELL WITH NO NAUSEA OR VOMITING NOTED AT THIS TIME.
--- NOTE | 2021-10-04 22:15 | NUR ---
MS/RN NOTE PATIENT WITH C/O PAIN TO ABDOMEN 12/24. ADMINISTERED PRN MORPHINE PER MD ORDERS.
[2021-10-04] MEDS ORDERED: ALPRAZOLAM 0.25 MG TABLET PO PRN (22:20)
--- NOTE | 2021-10-04 22:30 | NUR ---
MS/RN NOTE PATIENT WITH C/O INCREASED ANXIETY. REQUESTING MEDICATION. NOTIFIED RESTAURANT ASSOCIATE POINT OF CARE TECHNICIAN ODALYS WITH NEW ORDER FOR XANAX 0.25MG Q8HR PRN. ORDER INPUTTED AND CARRIED OUT.
--- NOTE | 2021-10-05 00:53 | NUR ---
MS/RN NOTE SPOKE WITH PHARMACIST AT [facility] AFTER HOURS REGARDING COMPATIBILITY BETWEEN ANCEF AND ZOSYN. PER PHARMACIST THESE MEDICATIONS ARE NOT COMPATIBLE AND PATIENT SHOULD BE ON ONE OR THE OTHER. HOLDING ZOSYN IV TONIGHT. CONTINUING IV ANCEF PER DR. ROWLAND. WILL FOLLOW UP IN AM WITH [facility] REGARDING IV ZOSYN.
[2021-10-05] MEDS ORDERED: ANCEF 1 GM/50 ML D5W IV SCH ×2 (02:00)
[2021-10-05] MEDS: MORPHINE SULFATE INJ 2 MG/ML DISP.SYRIN IV PRN ×5 (02:12→20:13)
--- NOTE | 2021-10-05 06:20 | NUR ---
MS/RN NOTE NOTIFIED BY DR. ROWLAND TO CONTINUE ZOSYN AND D/C ANCEF.
--- NOTE | 2021-10-05 06:30 | NUR ---
MS/RN CLOSING NOTE PATIENT CURRENTLY RESTING IN BED. AWAKE, ALERT AND ORIENTED X 4. ABLE TO MAKE NEEDS KNOWN. ENDORSES PAIN TO RIGHT UPPER ABDOMEN. MEDICATED WITH MORPHINE. CONTINUES ON ROOM AIR WITH NO S/SX OF RESPIRATORY DISTRESS NOTED. IV ACCESS TO RIGHT FOREARM #20G INTACT AND PATENT. CONTINUES ON LR @ 100ML/HR. CONTINUES ON IV ABX ZOSYN. ABDOMINAL INCISION SITES WITH DRESSINGS C/D/I. PATIENT IS AMBULATORY WITH STEADY GAIT. CALL LIGHT WITHIN REACH. ASPIRATION, FALL AND SAFETY PRECAUTIONS MAINTAINED. WILL ENDORSE PLAN OF CARE TO ONCOMING SHIFT RN.
[2021-10-05] MEDS: PIPERACILLIN /TAZOBACTAM 4.5 G in IV D5W 50 ML IV SCH ×6 (06:39→23:48)
[2021-10-05 06:46] LABS: CALCIUM, SERUM 8.4 mg/dL (8.5-10.1); CREATININE 0.6 mg/dL (0.6-1.3); PHOSPHORUS 2.3 mg/dL (2.5-4.9); POTASSIUM 3.6 mmol/L (3.5-5.1)
--- NOTE | 2021-10-05 07:00 | NUR ---
MS RN OPENING NOTES PATIENT LAYING IN BED, A/O X 4, ABLE TO MAKE NEEDS KNOWN. TOLERATING WELL ON ROOM AIR WITH NO S/S RESPIRATORY DISTRESS. NO COMPLAINTS OF PAIN OR DISCOMFORT AT THIS TIME. R FOREARM # 20 G SL CLEAN, INTACT, AND FLUSHING WELL. ABDOMINAL INCISION SITES WITH DRESSINGS PRESENT C/D/I. SAFETY MEASURES IN PLACE: BED IN LOWEST LOCKED POSITION, SIDE RAILS UP X 2, CALL LIGHT WITHIN REACH. WILL CONTINUE TO MONITOR.
[2021-10-05 07:16] LABS: BASOPHILS % (AUTO) 0.1 % (0.0-2.0); EOSINOPHILS % (AUTO) 0.1 % (0.0-6.0); HEMATOCRIT 36 % (33-45); LYMPHOCYTES # (AUTO) 1.1 K/uL (0.8-4.8); MEAN CORPUSCULAR HGB CONC 34 g/dl (31.0-36.0); MEAN CORPUSCULAR VOLUME 89 fL (82-100); MONOCYTES # (AUTO) 0.3 K/uL (0.1-1.30); NEUTROPHILS # (AUTO) 4.8 K/uL (1.8-8.9); NEUTROPHILS % (AUTO) 76.8 % (43.0-81.0); PLATELET COUNT (AUTO) 198 K/uL (150-450); RED BLOOD CELL COUNT(AUTO) 4.03 MIL/uL (4.0-5.2); WHITE BLOOD COUNT (AUTO) 6.3 K/uL (4.3-11.0)
[2021-10-05 08:00] VITALS: BP 115/75
[2021-10-05] MEDS: TOPIRAMATE 25 MG TABLET PO SCH (09:36)
[2021-10-05] MEDS: VALACYCLOVIR HCL 500 MG TABLET PO SCH (09:36)
[2021-10-05] MEDS: LamoTRIgine 100 MG TABLET PO SCH (09:36)
[2021-10-05] MEDS ORDERED: K PHOS NEUTRAL 250 MG TABLET PO ONE (10:00)
[2021-10-05 16:00] VITALS: BP 115/74
--- NOTE | 2021-10-05 19:27 | NUR ---
MS RN OPENING RECEIVED PATIENT SITTING IN BED/ AMBULATING, A/OX4. NO S/S OF APPARENT DISTRESS IN ROOM AIR. DAUGHTER AT BEDSIDE. NO C/O PAIN NOR DISCOMFORT AT THIS TIME. NO FLUIDS RUNNING AT THIS TIME. ORIENTED AND ENCOURAGED WITH THE USE OF CALL LIGHT. SAFETY IN PLACE. WILL CONTINUE WITH THE PLAN OF CARE FOR PATIENT.
[2021-10-05 20:00] VITALS: BP 131/72
--- NOTE | 2021-10-05 21:29 | NUR ---
MS RN NOTE- BENADRYL OVERRIDE PER PATIENT SHE TAKES BENADRYL AT HOME EVERY TIME WITH NO PROBLEM. OK TO OVERRIDE PER CHARGE NURSE, EARL.
[2021-10-05] MEDS ORDERED: diphenhydrAMINE HCL 25 MG CAPSULE PO ONE (21:30)
--- NOTE | 2021-10-05 21:40 | NUR ---
MS RN NOTE PATIENT C/O ITCHINESS AND REQUESTING BENADRYL. MESSAGED ELECTRICIAN JOURNEYMAN WIREMAN LALO MORROW NP. ORDERED ONE TIME ORDER BENADRYL 25 MG PO. ORDER CARRIED OUT
[2021-10-05] MEDS: CYCLOBENZAPRINE 10 MG TABLET PO SCH (22:38)
[2021-10-06] MEDS: PIPERACILLIN /TAZOBACTAM 4.5 G in IV D5W 50 ML IV SCH (06:17)
--- NOTE | 2021-10-06 07:20 | NUR ---
MS RN CLOSING NOTE PATIENT IN BED WITH EYES CLOSED. EASY TO AROUSE. NO S/S OF APPARENT DISTRESS IN ROOM AIR. NO C/O PAIN AT THIS TIME. NO IV FLUIDS RUNNING. NEEDS ATTENDED. FOR D/C PLANNING TODAY. SAFETY KEPT IN PLACE THE WHOLE SHIFT. ENDORSED TO JAY GONZALEZ FOR CONTINUITY OF CARE.
--- NOTE | 2021-10-06 07:30 | NUR ---
MS RN OPENING NOTES RECEIVED PATIENT IN BED AWAKE. PATIENT IS ALERT AND ORIENTED TIMES 4. NO PAIN NOTED. NO SOB NOTED. NO DISTRESS NOTED. ALL NEEDS ATTENDED. IV SITE ON THE RFA g 20 INTACT. ON ROOM AIR . NO SOB NOTED. ALL SAFETY MEASURES IN PLACE. BED LOCKED IN THE LOWEST POSITION. CALL LIGHT AND TABLE IN REACH. SIDE RAILS UP TIMES 2. WILL CONTINUE TO MONITOR.
[2021-10-06 08:07] VITALS: BP 107/71
[2021-10-06] MEDS: VALACYCLOVIR HCL 500 MG TABLET PO SCH (08:19)
[2021-10-06] MEDS: LamoTRIgine 100 MG TABLET PO SCH (08:19)
[2021-10-06] MEDS: TOPIRAMATE 25 MG TABLET PO SCH (08:19)
[2021-10-06] MEDS: MORPHINE SULFATE INJ 2 MG/ML DISP.SYRIN IV PRN (08:20)
[2021-10-06] MEDS ORDERED: CEPH500C2 PO (09:53)
--- NOTE | 2021-10-06 11:14 | NUR ---
MOP MACHINE OPERATOR NOTES DISCHARGE PATIENT IN STABLE CONDITION. NO PAIN NOTED. NO SOB NOTED. NO DISTRESS NOTED. ALL NEEDS ATTENDED. ALL THE BELONGINGS ACCOUNTED AND SIGNED FOR. ALL THE DISCHARGE INSTRUCTIONS GIVEN TO THE PATIENT. PATIENT VERBALIZED UNDERSTANDING. IV SITE REMOVED. COVERED WITH DRY DRESSING. NO BLEEDING NOTED. AT BED SIDE. CATALINA WHEELED THE PATIENT TO THE LOBBY AT 1110. PATIENT LEFT FACILITY IN STABLE CONDITION WITH STABLE VITAL SIGNS. MD AND CHARGE NURSE AWARE OF THE DISCHARGE.
== END 2021-10-06 11:15 | disposition home or self-care (01) | DRG 417 ==
LOC: ER 05:35 → TRANSITION 09:19 → MED 10:55
PROVIDERS: ADMIT Internal Medicine; ATTEND Internal Medicine
PROC: BF36ZZZ Magnetic Resonance Imaging (MRI) of Liver and Spleen (ICD-10-PCS; 2021-10-02)
PROC: BF37ZZZ Magnetic Resonance Imaging (MRI) of Pancreas (ICD-10-PCS; 2021-10-02)
PROC: 0F798ZZ Dilation of Common Bile Duct, Via Natural or Artificial Opening Endoscopic (ICD-10-PCS; 2021-10-03)
PROC: BF101ZZ Fluoroscopy of Bile Ducts using Low Osmolar Contrast (ICD-10-PCS; 2021-10-03)
PROC: 0FT44ZZ Resection of Gallbladder, Percutaneous Endoscopic Approach (ICD-10-PCS; principal; 2021-10-04)
DX: K80.66 Calculus of gallbladder and bile duct with acute and chronic cholecystitis without obstruction (principal); K85.10 Biliary acute pancreatitis without necrosis or infection; M79.7 Fibromyalgia; E87.6 Hypokalemia; Z87.19 Personal history of other diseases of the digestive system; Z20.822 Contact with and (suspected) exposure to COVID-19; F31.9 Bipolar disorder, unspecified; I10 Essential (primary) hypertension; Z79.899 Other long term (current) drug therapy
CPT/HCPCS: 36415; 71045-TC; 74018; 74181-TC; 76700-TC; 80048-TC; 80053-TC; 80076-TC; 81001; 82150-TC; 83690-TC; 83735-TC; 84100-TC; 85025-TC; 87081-TC; 87086-TC; 88304-TC; G0378; J0330; J0690; J1100; J1170; J1885; J2250; J2270; J2405; J2543; J2704; J2765; J3010; J3490; J7030; J7040; J7060; J7120; Q0163; Q9966

== ENCOUNTER 2022-07-21 18:19 | Emergency (ER) | payer BC ==
[~2022-07-21] VITALS: Ht 165.1 cm; Wt 61.2 kg
[~2022-07-21 18:19] MED LIST changes: +CEPH500C2 PO; +PANT40TA2 PO
--- NOTE | 2022-07-21 20:51 | NUR ---
BIBS FROM HOME, CC OF PAIN ON LEFT POPLETEAL AREA RADIATING TO LOWER LEG STARTED 1530H. PAIN SCALE 10/10. +LIMPING, A/O X 4. NO S/S OF DISTRESS NOTED.
[2022-07-21 21:45] LABS: BASOPHILS % (AUTO) 0.5 % (0.0-2.0); EOSINOPHILS % (AUTO) 1.1 % (0.0-6.0); HEMATOCRIT 43 % (33-45); HEMOGLOBIN 14.3 g/dL (11.5-14.8); LYMPHOCYTES % (AUTO) 35.8 % (20.0-44.0); MEAN CORPUSCULAR HGB CONC 33 g/dl (31.0-36.0); MEAN CORPUSCULAR VOLUME 90 fL (82-100); MONOCYTES # (AUTO) 0.3 K/uL (0.1-1.30); MONOCYTES % (AUTO) 5.4 % (2.0-12.0); NEUTROPHILS # (AUTO) 3.1 K/uL (1.8-8.9); NEUTROPHILS % (AUTO) 57.2 % (43.0-81.0); PLATELET COUNT (AUTO) 286 K/uL (150-450); WHITE BLOOD COUNT (AUTO) 5.4 K/uL (4.3-11.0)
[2022-07-21 21:56] LABS: CALCIUM, SERUM 9.3 mg/dL (8.5-10.1); CREATININE 0.9 mg/dL (0.6-1.3); POTASSIUM 3.5 mmol/L (3.5-5.1)
--- NOTE | 2022-07-21 21:56 | NUR ---
ANDREW GARCIA AT BEDSIDE
--- NOTE | 2022-07-21 22:36 | NUR ---
Patient discharged to home in stable condition. Written and verbal after care instructions given. Patient verbalizes understanding of instruction.
[2022-07-21 22:37] VITALS: BP 119/85
== END 2022-07-21 22:36 | disposition home or self-care (01) ==
LOC: ER 18:21
DX: M79.605 Pain in left leg (principal); I10 Essential (primary) hypertension; F41.9 Anxiety disorder, unspecified; F32.A Depression, unspecified; Z98.890 Other specified postprocedural states; Z79.899 Other long term (current) drug therapy; Z88.8 Allergy status to other drugs, medicaments and biological substances
CPT/HCPCS: 36415; 80048-TC; 85025-TC; 85610-TC; 85730-TC; 93971-TC